=== PATIENT | female | born 1995 | race Caucasian/White ===

== ENCOUNTER → 2016-08-18 | Outpatient (CLI) | payer BC ==
[~2016-08-18] MED LIST: AMPH10TA2 PO; B-COTAB69 PO; CYAN10005 PO; FLUO40CA8 PO; OMEG10007 PO
== END | disposition home or self-care (01) ==
LOC: C.LAB 17:21
PROVIDERS: ATTEND Internal Medicine
DX: R50.9 Fever, unspecified (principal); R53.83 Other fatigue; M86.271 Subacute osteomyelitis, right ankle and foot

== ENCOUNTER 2016-08-23 00:30 | Emergency (ER) | payer BC ==
[~2016-08-23] VITALS: Ht 167.6 cm; Wt 86.1 kg
[2016-08-23 01:42] VITALS: O2SAT 97; Ht 167.6 cm; Wt 86.1 kg
[2016-08-23 01:42] LABS: BASO % 0.1 %; BASO ABS # 0.01 K/uL (0-0.2); COMPLETE YES; EOS % 0.5 %; HEMATOCRIT 39.9 % (37-47); IG% 0.2 %; LYMPH % 28.3 %; MEAN CELL VOLUME 87.5 fL (80-100); MEAN CORPUSCULAR HEMOGLOBIN 31.4 pg (25-34); MEAN CORPUSCULAR HGB CONC 35.8 g/dl (32-36); MEAN PLATELET VOLUME 9.4 fL (7.4-10.4); MONO % 7.5 %; NEUT % 63.4 %; PLATELET COUNT 212 K/uL (130-400); RED BLOOD COUNT 4.56 M/uL (4.2-5.4); WHITE BLOOD COUNT 8.12 K/uL (4.8-10.8)
[2016-08-23 01:45] LABS: INR 0.9 (0.9-1.1); PROTHROMBIN TIME (PATIENT) 9.4 SECONDS (9.0-12.0)
[2016-08-23 01:48] LABS: MANUAL MICROSCOPIC REQUIRED? YES; URINE APPEARANCE CLEAR (CLEAR); URINE BILIRUBIN NEG (NEG); URINE COLOR YELLOW; URINE NITRITE NEG (NEG); UROBILINOGEN NEG (NEG)
[2016-08-23 01:52] LABS: REVIEW REQ? NO
[2016-08-23 01:53] LABS: ALT/SGPT 18 U/L (12-78); AST/SGOT 13 U/L (15-37); BLOOD UREA NITROGEN 10 mg/dl (7-18); BUN/CREATININE RATIO 11.4 (10-20); CALCIUM 9.3 mg/dl (8.5-10.1); CARBON DIOXIDE 20 mmol/L (21-32); CHLORIDE 110 mmol/L (98-107); CREATININE 0.84 mg/dl (0.60-1.20); GLUCOSE 113 mg/dl (70-99); POTASSIUM 3.4 mmol/L (3.5-5.1); SODIUM 141 mmol/L (136-145)
[2016-08-23 01:55] LABS: URINE RBC 0-4 /hpf (0-4)
[2016-08-23 01:56] LABS: URINE BACTERIA 3+ (NEG)
[2016-08-23 01:56] LABS: ALB/GLOB RATIO 1.1 (0.9-2); ALKALINE PHOSPHATASE 77 U/L (45-117)
[2016-08-23 01:57] LABS: ZZUR CULT IF INDIC CLEAN CATCH YES
[2016-08-23] MEDS ORDERED: KETOROLAC TROMETHAMINE 30 MG/ML VIAL IV STA (03:06)
--- NOTE | 2016-08-23 03:33 | EMERGENCY ROOM VISIT NOTE ---
History Report prepared by Chris: Blayne Cox Under the Supervision of: Dr. Ruth Ann Mcmanus D.O. First contact with patient: 00:45 Chief Complaint: CHEST PAIN Stated Complaint: CHEST PAIN,HEAD PAIN,NECK PAIN Nursing Triage Summary: Patient states that she has been sick for 1.5 weeks with head and neck pain. 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 Patient is very anxious at this time. History of Present Illness The patient is a 21 year old female who presents to the Emergency Room with complaints of persistent chest pain beginning about 8 hours ago. She reports also having low back and neck pain, and denies having any fever or abdominal pain. She was seen at [facility] 7 days ago and was scheduled for a heart test and lumbar puncture. The patient reports she had ankle surgery 1 year ago and developed an Eikenella and haemophilus infection post-surgery. She is scheduled for another surgery to the same ankle. She had blood cultures done 5 days ago which showed Micrococcus. Source of History: patient Onset: about 8 hours ago Position: chest Quality: other (chest pain) Timing: other (persistent) Associated Symptoms: + back pain, + neck pain, No abdominal pain, No fevers Review of Systems See HPI for pertinent positives & negatives. A total of 10 systems reviewed and were otherwise negative. Past Medical & Surgical Medical Problems: (1) No chronic problems History of ankle infection. History of ankle surgery. Family History No pertinent family history Social History Smoking Status: Never Smoker Alcohol Use: occasionally Marital Status: single Housing Status: lives with roommate Occupation Status: [employer] Current/Historical Medications Scheduled Amphetamine-Dextroamphetamine 10MG (Adderall 10MG), 20 MG PO DAILY Fluoxetine Hcl (Prozac), 40 MG PO DAILY Allergies Coded Allergies: No Known Allergies (Unverified , 08/23/16) Physical Exam Vital Signs Date Time Temp Pulse Resp B/P Pulse Ox O2 Delivery O2 Flow Rate FiO2 08/23/16 08:01 85 16 120/75 98 Room Air 08/23/16 07:27 37.1 75 16 120/70 94 Room Air 08/23/16 05:30 91 NIBP 08/23/16 05:00 120 20 115/71 08/23/16 04:10 81 08/23/16 04:00 83 18 126/75 97 Room Air 08/23/16 03:04 82 18 122/82 97 Room Air 08/23/16 01:42 97 Room Air 08/23/16 01:42 87 16 134/85 96 Room Air 08/23/16 00:43 97 Room Air 08/23/16 00:43 97 08/23/16 00:37 37.1 94 20 129/94 97 Room Air Physical Exam HEENT: Head - normocephalic and atraumatic Pupils are equal, round, and reactive to light. Extraocular eye muscles are intact, and sclera are anicteric. Nose - moist nasal mucosa without discharge. Mouth - moist buccal mucosa. Oropharynx is nonerythematous and there is no tonsillar exudate or edema noted. Neck: Supple; no JVD, nuchal rigidity, cervical lymphadenopathy, or auscultated bruits. Chest: Reproducible pain about the sternum and anterior chest wall. Heart: Regular rate and rhythm. There is a normal S1 and S2 with no murmurs, clicks, or gallops appreciated. Lungs: Clear to auscultation bilaterally with no wheezes, rales, or rhonchi. Abdomen: Soft; epigastric tenderness; nondistended, with good bowel sounds. There are no palpable pulsatile masses or hepatosplenomegaly. There is no guarding, rigidity, or rebound noted. Extremities: No evidence of cyanosis, clubbing, or edema. There are easily palpable peripheral pulses. Skin: warm and dry with good turgor and no rashes. Medical Decision & Procedures ER Provider Diagnostic Interpretation: CHEST X-RAY: Unremarkable. No pulmonary infiltrate. No pleural effusions. Laboratory Results 08/23/16 00:45 Red Blood Count 4.56, Mean Corpuscular Volume 87.5, Mean Corpuscular Hemoglobin 31.4, Mean Corpuscular Hemoglobin Concent 35.8, Mean Platelet Volume 9.4, Neutrophils (%) (Auto) 63.4, Lymphocytes (%) (Auto) 28.3, Monocytes (%) (Auto) 7.5, Eosinophils (%) (Auto) 0.5, Basophils (%) (Auto) 0.1, Neutrophils # (Auto) 5.14, Lymphocytes # (Auto) 2.30, Monocytes # (Auto) 0.61, Eosinophils # (Auto) 0.04, Basophils # (Auto) 0.01 08/23/16 00:45 Test 08/23/16 00:45 08/23/16 01:30 08/23/16 01:34 08/23/16 02:03 White Blood Count 8.12 K/uL (4.8-10.8) Red Blood Count 4.56 M/uL (4.2-5.4) Hemoglobin 14.3 g/dL (12.0-16.0) Hematocrit 39.9 % (37-47) Mean Corpuscular Volume 87.5 fL (80-100) Mean Corpuscular Hemoglobin 31.4 pg (25-34) Mean Corpuscular Hemoglobin Concent 35.8 g/dl (32-36) Platelet Count 212 K/uL (130-400) Mean Platelet Volume 9.4 fL (7.4-10.4) Neutrophils (%) (Auto) 63.4 % Lymphocytes (%) (Auto) 28.3 % Monocytes (%) (Auto) 7.5 % Eosinophils (%) (Auto) 0.5 % Basophils (%) (Auto) 0.1 % Neutrophils # (Auto) 5.14 K/uL (1.4-6.5) Lymphocytes # (Auto) 2.30 K/uL (1.2-3.4) Monocytes # (Auto) 0.61 K/uL (0.11-0.59) Eosinophils # (Auto) 0.04 K/uL (0-0.5) Basophils # (Auto) 0.01 K/uL (0-0.2) RDW Standard Deviation 38.0 fL (36.4-46.3) RDW Coefficient of Variation 12.0 % (11.5-14.5) Immature Granulocyte % (Auto) 0.2 % Immature Granulocyte # (Auto) 0.02 K/uL (0.00-0.02) Prothrombin Time 9.4 SECONDS (9.0-12.0) Prothromb Time International Ratio 0.9 (0.9-1.1) Activated Partial Thromboplast Time 25.9 SECONDS (21.0-31.0) Partial Thromboplastin Ratio 1.0 Anion Gap 11.0 mmol/L (3-11) Est Creatinine Clear Calc Drug Dose 116.1 ml/min Estimated GFR () 114.3 Estimated GFR (Non- 98.7 BUN/Creatinine Ratio 11.4 (10-20) Calcium Level 9.3 mg/dl (8.5-10.1) Total Bilirubin 0.3 mg/dl (0.2-1) Aspartate Amino Transf (AST/SGOT) 13 U/L (15-37) Alanine Aminotransferase (ALT/SGPT) 18 U/L (12-78) Alkaline Phosphatase 77 U/L (45-117) Total Creatine Kinase 77 U/L (26-192) Creatine Kinase MB 0.9 ng/ml (0.5-3.6) Creatine Kinase MB Ratio 1.2 (0-3.0) Troponin I < 0.015 ng/ml (0-0.045) C-Reactive Protein 0.44 mg/dl (0-0.29) Total Protein 7.4 gm/dl (6.4-8.2) Albumin 3.9 gm/dl (3.4-5.0) Globulin 3.5 gm/dl (2.5-4.0) Albumin/Globulin Ratio 1.1 (0.9-2) Urine Color YELLOW Urine Appearance CLEAR (CLEAR) Urine pH 6.0 (4.5-7.5) Urine Specific [place] 1.010 (1.000-1.030) Urine Protein NEG (NEG) Urine Glucose (UA) NEG (NEG) Urine Ketones NEG (NEG) Urine Occult Blood TRACE (NEG) Urine Nitrite NEG (NEG) Urine Bilirubin NEG (NEG) Urine Urobilinogen NEG (NEG) Urine Leukocyte Esterase SMALL (NEG) Urine RBC 0-4 /hpf (0-4) Urine WBC 5-10 /hpf (0-5) Urine Epithelial Cells >30 /lpf (0-5) Urine Renal Cells 5-10 /lpf (FEW) Urine Bacteria 3+ (NEG) Erythrocyte Sedimentation Rate 8 mm/hr (0-21) Bedside Lactic Acid Venous 0.54 mmol/L (0.90-1.70) Test 08/23/16 07:00 CSF Color COLORLESS CSF Appearance CLEAR CSF WBC 1 /uL (0-5) CSF RBC 1 /uL (0) CSF Xanthrochromic NO XANTHOCHROMIA CSF Cell Count Tube # 4 CSF Chemistry Tube # 2 CSF Glucose 62 mg/dl (40-70) CSF Total Protein 28.6 mg/dl (15.0-45.0) Laboratory results per my review. Medications Administered Medications (Trade) Dose Ordered Sig/Sudeep Route Start Time Stop Time Status Last Admin Dose Admin Ketorolac Tromethamine (Toradol Inj) 30 mg NOW STAT IV 08/23/16 03:06 08/23/16 03:07 DC 08/23/16 03:22 30 MG Ondansetron HCl (Zofran Inj) 4 mg STK-MED ONCE .ROUTE 08/23/16 04:36 08/23/16 04:39 DC 08/23/16 04:36 4 MG Procedure 0306: Ordered Toradol Inj 30 mg IV. ECG Indication: chest pain Rate (beats per minute): 94 Rhythm: normal sinus Findings: no acute ischemic change, no ectopy ED Course 0100: Past medical records reviewed. The patient was evaluated in room A4B. A complete history and physical exam was performed. An IV lock was initiated and labs were drawn as above. A twelve-lead EKG was obtained as described above. 0306: Ordered Toradol Inj 30 mg IV for the patient's chest discomfort. 0355: I updated the patient. She is feeling slightly better after the Toradol. I consented her for a spinal tap. I attempted a lumbar puncture on this patient was unsuccessful. 0510: Discussed the patient's case with Dr. Mercado who notes that the day shift will be here in about one hour to conduct a lumbar puncture under fluoroscopy. 0628: Dr. Mercado noted having mechanical problems with fluoroscopy, and will get back to me regarding a plan. 0640: The patient went for lumbar puncture under fluoroscopy. 0750: I updated the patient on her results. I also spoke with the patient's father and went over the results with him as well. 0800: Upon reevaluation, the patient is doing well. I discussed findings and results with the patient. She verbalized agreement of the treatment plan. The patient was discharged home. Medical Decision The patient is a 21 year old female who presents to the Emergency Room with complaints of persistent chest pain beginning about 8 hours ago. Differentials include costochondritis, anxiety, pneumonia, GERD, pericarditis, myocarditis, endocarditis, pancreatitis, PE, sepsis, meningitis, and bacteremia. Laboratory Interpretations: Normal WC; stable H&H; normal renal function; glucose 113; lactic acid 0.5; normal LFTs; C reactive protein 0.44; normal coagulation studies; cardiac enzymes are negative; sed rate was 8; urinalysis appears to be contaminated but will be sent for cultures. CSF clear and colorless; no xanthochromia; 1 CSF WBC; 1 CFS RBC; CSF glucose 62; CSF total protein 28. This is a 21-year-old female patient who presents to the emergency department after having a 10 day history of headache, fatigue, neck pain and low back pain. She has been followed through [facility]. They were planning to schedule her for an outpatient lumbar puncture and "heart test" as the patient describes it. She became more concerned tonight because she developed some midsternal chest discomfort. This discomfort was easily reproducible with palpation of the sternum, anterior chest wall, and epigastrium. I reviewed multiple records that the patient had with her from her extensive past medical history to include left ankle surgery with failed hardware and infection. She questioned the possibility of having infection from that surgery greater than a year ago as a possible cause of her symptoms today. We talked about meningitis, bacteremia, endocarditis, etc. The patient has no fever or leukocytosis at this time. Lactic acid was unremarkable. Sedimentation rate was normal. C-reactive protein was only slightly elevated. Most importantly, the patient has no increased pain in her ankle at this time. Lumbar puncture was performed to rule out meningitis. This was negative. I have recommended that the patient close follow-up with [facility] to pursue additional testing. The patient asked if I could discuss the case with her father and I did. She was told to return to the emergency department if she developed worsening ankle pain, fevers, vomiting, or shortness of breath. Consults Time Called: 0505 Consulting Physician: Dr. Mercado Returned Call: 0510 Discussed the patient's case with Dr. Mercado who notes that the day shift will be here in about one hour to conduct a lumbar puncture under fluoroscopy. Impression Primary Impression: Chest pain Additional Impression: Neck pain Scribe Attestation The scribe's documentation has been prepared under my direction and personally reviewed by me in its entirety. I confirm that the note above accurately reflects all work, treatment, procedures, and medical decision making performed by me. Departure Information Dispostion Home / Self-Care Referrals [facility] (PCP) Patient Instructions My [facility] Additional Instructions Rest. Use tylenol or motrin for pain. Follow up with [facility] for additional testing. Problem Qualifiers
[2016-08-23 03:50] LABS: C-REACTIVE PROTEIN 0.44 mg/dl (0-0.29)
[2016-08-23 04:19] LABS: CKMB/CK RATIO 1.2 (0-3.0)
[2016-08-23] MEDS ORDERED: ONDANSETRON INJ 2 MG/ML 2 ML VIAL ONE (04:36)
[2016-08-23] MEDS ORDERED: LIDOCAINE HCL 1% 20 ML VIAL ONE (04:45)
[2016-08-23 07:27] VITALS: TEMP 37.1
--- NOTE | 2016-08-23 07:27 | DIAGNOSTIC IMAGING REPORT ---
FLUOROSCOPICALLY GUIDED LUMBAR PUNCTURE CLINICAL HISTORY: eval for meningitis headache. FLUOROSCOPY TIME: 0.1 minutes PROCEDURE: The procedure, risks and benefits were discussed with the patient including the risk of spinal headache, bleeding and infection. The patient agreed to the procedure and informed written consent was obtained. The procedure was performed by Dr. Mercado following a timeout. The left L4-L5 interlaminar space was targeted. Skin overlying the space was prepped and draped in the usual sterile fashion and local anesthesia was achieved with 1% lidocaine. Under intermittent fluoroscopic guidance, a 20-gauge x 3 1/2 in. Sprotte needle was inserted into the thecal sac. A total of 8cc of clear, colorless cerebral spinal fluid was obtained and spread amongst 4 vials. The patient tolerated the procedure well. There were no immediate complications. The specimens were sent to the laboratory at the request of the referring physician. IMPRESSION: Successful fluoroscopic guided lumbar puncture with removal of 8 cc of clear, colorless cerebral spinal fluid. No immediate complications. Electronically signed by: Nigel Mercado M.D. 08/23/2016 7:25 AM Dictated Date/Time: 08/23/2016 7:24 AM
[2016-08-23 07:39] LABS: CSF TOTAL PROTEIN 28.6 mg/dl (15.0-45.0)
[2016-08-23 07:42] LABS: CSF APPEARANCE CLEAR; CSF COLOR COLORLESS; CSF XANTHOCHROMIC NO XANTHOCHROMIA
[2016-08-23 07:44] LABS: CSF CHEMISTRY TUBE # 2
--- NOTE | 2016-08-23 07:48 | DIAGNOSTIC IMAGING REPORT ---
CHEST ONE VIEW PORTABLE CLINICAL HISTORY: Sepsis dyspnea COMPARISON STUDY: No previous studies for comparison. FINDINGS: The bones soft tissues and hemidiaphragms are normal. The cardiomediastinal silhouette is normal. The lungs are clear. The pulmonary vasculature is normal. IMPRESSION: Negative chest. Electronically signed by: Nigel Mercado M.D. 08/23/2016 7:46 AM Dictated Date/Time: 08/23/2016 7:45 AM
[2016-08-23 08:01] VITALS: BP 120/75; PULSE 85; O2SAT 98
== END 2016-08-23 08:04 | disposition home or self-care (01) ==
LOC: C.EDB 00:32 → C.EDA 08:04
DX: R07.9 Chest pain, unspecified (principal); R51 Headache; M54.2 Cervicalgia

== ENCOUNTER → 2016-08-26 | Outpatient (CLI) | payer BC ==
[~2016-08-26] MED LIST changes: -B-COTAB69 PO; -CYAN10005 PO; +GADAVIST IV PRN; -OMEG10007 PO
--- NOTE | 2016-08-26 19:23 | DIAGNOSTIC IMAGING REPORT ---
MRI OF THE BRAIN COMBO CLINICAL HISTORY: Headache and neck pain. Fatigue. COMPARISON STUDY: No priors. TECHNIQUE: MRI of the brain was performed utilizing various T1 and T2-weighted sequences in the axial, sagittal, and coronal planes. Contrast-enhanced sequences were acquired following the administration of 8 cc of Gadavist. FINDINGS: Brain parenchyma: The brain parenchyma is normal in appearance. There is no hemorrhage or mass effect. There is no restricted diffusion to suggest acute ischemia. No enhancing mass lesion is identified on the postcontrast images. There is no leptomeningeal or pachymeningeal enhancement. Carter-white matter differentiation is preserved. No extra-axial fluid collection is seen. The cerebellar tonsils are normal in configuration. Ventricles, sulci, and cisterns: Normal in configuration. Pituitary and sella: Unremarkable. Intracranial vasculature: Normal flow voids are maintained at the skull base. Orbits: The bony orbits are grossly intact. Orbital contents are normal in appearance. Sinuses and mastoids: There is mild mucosal thickening within the maxillary antra. A large retention cyst is noted within the right maxillary antrum. The remaining paranasal sinuses are clear. Findings suggest previous paranasal sinus surgery. The mastoid air cells are well pneumatized. Calvarium: Unremarkable. Cervical cord: Partially visualized cervical spinal cord is normal in morphology and signal intensity. IMPRESSION: No acute intracranial abnormality. Electronically signed by: Juvencio Rock M.D. 08/26/2016 7:22 PM Dictated Date/Time: 08/26/2016 7:19 PM
== END | disposition home or self-care (01) ==
LOC: C.MRI 18:23
PROVIDERS: ATTEND Internal Medicine
DX: B34.9 Viral infection, unspecified (principal)

== ENCOUNTER → 2016-08-27 | Outpatient (CLI) | payer BC ==
[~2016-08-27] MED LIST changes: -GADAVIST IV PRN
== END | disposition home or self-care (01) ==
LOC: C.LABSPEC 14:56
PROVIDERS: ATTEND Internal Medicine
DX: R50.9 Fever, unspecified (principal); B34.9 Viral infection, unspecified; M86.271 Subacute osteomyelitis, right ankle and foot

== ENCOUNTER → 2016-09-02 | Outpatient (CLI) | payer BC ==
--- NOTE | 2016-09-02 17:40 | ECHOCARDIOGRAM REPORT ---
*NOTICE TO RECEIVING DEMOCRAT AGENCY This information is strictly Confidential and protected under [place] law. [place] law prohibits you from making any further disclosure of this information unless further disclosure is expressly permitted by the written consent of the person to whom it pertains or is authorized by law. A general authorization for the release of medical or other information is not sufficient for this purpose. Hospital accepts no responsibility if the information is made available to any other person, INCLUDING THE PATIENT. Interpretation Summary * Name: KAYDEN JEFFRIES Study Date: 09/02/2016 01:03 PM BP: 117/67 mmHg * Patient Location: [facility] HR: 79 * : 1995 (M/d/yyyy) Gender: Female Height: 67 in * Age: 21 yrs Ethnicity: CA Weight: 180 lb * Ordering Physician: Vilma Hager * Referring Physician: Vilma Hager * Performed By: [facility] * * Reason For Study: Viral Syndrome, Fever, Headache * BSA: 1.9 m2 * -- Conclusions -- * Left ventricular systolic function is normal. * Normal study Procedure Details * A complete two-dimensional transthoracic echocardiogram was performed (2D, M-mode, Doppler and color flow Doppler). Left Ventricle * The left ventricle is normal in size. * There is normal left ventricular wall thickness. * Left ventricular systolic function is normal. * Ejection Fraction = 60-65%. Right Ventricle * The right ventricle is normal in size and function. Atria * The left atrial size is normal. * Right atrial size is normal. Mitral Valve * The mitral valve anatomy is normal. * There is no mitral regurgitation noted. Tricuspid Valve * The tricuspid valve is not well visualized, but is grossly normal. * Significant tricuspid regurgitation is absent. Aortic Valve * The aortic valve is normal in structure and function. * The aortic valve is trileaflet. * No hemodynamically significant valvular aortic stenosis. * There is no significant aortic regurgitation. Pulmonic Valve * The pulmonic valve leaflets are thin and pliable; valve motion is normal. Pericardium/Pleural * There is no pericardial effusion. MMode 2D Measurements and Calculations IVSd 0.47 cm IVSs 0.95 cm LVIDd 4.8 cm LVIDs 3.2 cm LVPWd 0.86 cm LVPWs 1.3 cm IVS/LVPW 0.55 FS 34.7 % EDV(Teich) 109.3 ml ESV(Teich) 39.6 ml EF(Teich) 63.8 % EDV(cubed) 112.9 ml ESV(cubed) 31.4 ml EF(cubed) 72.2 % % IVS thick 100.0 % % LVPW thick 51.5 % LV mass(C)d 102.0 grams LV mass(C)dI 52.8 grams/m\S\2 LV mass(C)s 106.2 grams LV mass(C)sI 54.9 grams/m\S\2 CO(Teich) 4.7 l/min CI(Teich) 2.5 l/min/m\S\2 SV(Teich) 69.7 ml SI(Teich) 36.0 ml/m\S\2 CO(cubed) 5.5 l/min CI(cubed) 2.9 l/min/m\S\2 SV(cubed) 81.5 ml SI(cubed) 42.1 ml/m\S\2 Ao root diam 2.7 cm Ao root area 5.8 cm\S\2 ACS 1.6 cm LA dimension 3.3 cm asc Aorta Diam 2.5 cm LA/Ao 1.2 LVAd ap4 35.5 cm\S\2 LVLd ap4 8.5 cm EDV(MOD-sp4) 122.0 ml LVAs ap4 19.0 cm\S\2 LVLs ap4 6.7 cm ESV(MOD-sp4) 45.0 ml EF(MOD-sp4) 63.1 % LVAd ap2 30.1 cm\S\2 LVLd ap2 8.2 cm EDV(MOD-sp2) 91.0 ml LVAs ap2 16.6 cm\S\2 LVLs ap2 6.8 cm ESV(MOD-sp2) 34.0 ml EF(MOD-sp2) 62.6 % CO(MOD-sp4) 5.2 l/min CI(MOD-sp4) 2.7 l/min/m\S\2 SV(MOD-sp4) 77.0 ml SI(MOD-sp4) 39.8 ml/m\S\2 CO(MOD-sp2) 3.9 l/min CI(MOD-sp2) 2.0 l/min/m\S\2 SV(MOD-sp2) 57.0 ml SI(MOD-sp2) 29.5 ml/m\S\2 Doppler Measurements and Calculations MV E max mallory 75.1 cm/sec MV A max mallory 70.6 cm/sec MV E/A 1.1 MV P1/2t max mallory 76.7 cm/sec MV P1/2t 90.5 msec MVA(P1/2t) 2.4 cm\S\2 MV dec slope 248.1 cm/sec\S\2 MV dec time 0.27 sec Ao V2 max 140.6 cm/sec Ao max PG 7.9 mmHg Ao max PG (full) 2.3 mmHg LV V1 max PG 5.6 mmHg LV V1 max 118.0 cm/sec PA V2 max 112.1 cm/sec PA max PG 5.0 mmHg
== END | disposition home or self-care (01) ==
LOC: C.CPL 12:48
PROVIDERS: ATTEND Internal Medicine
DX: B34.9 Viral infection, unspecified (principal)